=== PATIENT | male | born 1965 ===

== ENCOUNTER 2023-04-07 05:10 | Day surgery (SDC) | payer OTHER ==
[~2023-04-07] VITALS: Ht 170.2 cm; Wt 79.4 kg
[2023-04-07] MEDS ORDERED: PERCOCET 5-3251 EACH PO (09:37)
[2023-04-07] MEDS ORDERED: RECTICARE30 GM TOP (09:37)
== END 2023-04-07 15:10 | disposition home or self-care (01) ==
LOC: CIR.AMB 05:10
PROVIDERS: ATTEND Surgery
DX: K62.1 Rectal polyp (principal); K62.2 Anal prolapse; I10 Essential (primary) hypertension; Z20.822 Contact with and (suspected) exposure to COVID-19